=== PATIENT | male | born 2000 | race Hispanic/Latino ===

== ENCOUNTER 2022-01-02 06:47 | Emergency (ER) | payer BC ==
[~2022-01-02] VITALS: Ht 177.8 cm; Wt 122.5 kg
[2022-01-02] MEDS ORDERED: BEBTELOVIMAB 175 MG INJ IV ONE ×2 (08:30→08:45)
== END 2022-01-02 08:58 | disposition home or self-care (01) ==
LOC: ER 07:34
DX: U07.1 COVID-19 (principal); R53.81 Other malaise
CPT/HCPCS: 99284; U0002

== ENCOUNTER 2022-08-28 23:52 | Emergency (ER) | payer OTHER ==
[2022-08-29] MEDS ORDERED: LIDOCAINE HCL 1% LOCAL INJ 20 ML VIAL INJ ONE (00:30)
[2022-08-29] MEDS ORDERED: LIDOCAINE HCL 1% LOCAL INJ 20 ML VIAL ONE (00:42)
[2022-08-29] MEDS ORDERED: CLEOCIN HCL300 MG PO (00:52)
[2022-08-29] MEDS ORDERED: NAPROSYN500 MG PO (00:52)
[2022-08-29 01:03] VITALS: BP 120/78
== END 2022-08-29 01:05 | disposition home or self-care (01) ==
LOC: ER 23:55
DX: L02.211 Cutaneous abscess of abdominal wall (principal); J45.909 Unspecified asthma, uncomplicated; F17.210 Nicotine dependence, cigarettes, uncomplicated
CPT/HCPCS: 99283; J2001